=== PATIENT | female | born 2000 | race Caucasian/White ===

== ENCOUNTER 2022-04-28 20:25 | Emergency (ER) | payer OTHER, SELFPAY ==
--- NOTE | ~2022-04-28 | XR_ITS ---
EXAMINATION: XR chest 2V DATE: 04/28/2022 22:21 INDICATION: Shortness of breath and wheezing TECHNIQUE: Frontal and lateral views of the chest are obtained COMPARISON: None available FINDINGS: The lungs are free of acute opacities. No pleural effusion or pneumothorax. The cardiomedia stinal silhouette is normal. The visualized bones and soft tissues are unremarkable. IMPRESSION: 1. No acute cardiopulmonary abnormality. Reviewed, dictated and finalized at location F. MANAGEMENT NURSE PRACTITIONER
[2022-04-28 20:31] VITALS: BP 116/83; PULSE 97; RESP 15; TEMP 38.7; O2SAT 94
[2022-04-28 21:21] LABS: Influenza A QL RT-PCR Positive (Negative); Influenza B QL RT-PCR Negative (Negative); SARS-CoV-2 RNA PCR Negative
[2022-04-28] MEDS: ALBUTEROL SULFATE NEB 2.5 MG/3 ML INH 5 MG INHALATION (23:10)
[2022-04-28] MEDS: IPRATROPIUM BR 0.02% INH SOLN 0.5 MG/2.5 ML VIAL INHALATION (23:10)
[2022-04-28 23:11] VITALS: PULSE 91; RESP 20
[2022-04-28 23:22] VITALS: PULSE 89; RESP 20
--- NOTE | 2022-04-28 23:27 | ED.ASTHMA ---
HPI - Asthma General Chief Complaint: Asthma Stated Complaint: asthma with SOB Time Seen by Provider: 04/28/22 21:54 History of Present Illness HPI Narrative: 22-year-old female presents to the emergency room for evaluation of shortness of breath, difficulty breathing, wheezing, increased use of her albuterol nebulizer, body aches and headache. Patient states that she was seen in [facility] on Wednesday and diagnosed with a URI. Patient was given a couple days of prednisone and told to follow-up with her primary care physician. Patient states that she has been using her albuterol nebulizer machine 3 times day and has also been using her rescue inhaler 4-5 times a day. Related Data Allergies Allergy/AdvReac Type Severity Reaction Status Date / Time No Known Allergies Allergy Verified 04/28/22 20:26 Review of Systems Review of Systems: CONSTITUTIONAL: Denies fever, chills, or sweats. EYES: Denies visual changes, redness, or discharge. ENT: Denies rhinorrhea, congestion, sore throat, or otalgia. CARDIOVASCULAR: Denies chest pain, palpitations, or edema. RESPIRATORY: Reports dyspnea GASTROINTESTINAL: Denies abdominal pain, nausea, vomiting, or diarrhea. GENITOURINARY: Denies dysuria or hematuria. SKIN: Denies rash or itching. MUSCULOSKELETAL: Denies back pain, joint pain, or myalgia. NEUROLOGIC: Denies headache, numbness, dizziness, or weakness. PSYCHIATRIC: Denies anxiety or depression. [facility] Social History Social History Gender identity (if verbalized by the patient): Female Exam Narrative: GENERAL: Well-appearing, well-nourished, no physical limitations, and in no acute distress. HEAD: Normocephalic, atraumatic. EYES: Conjunctivae normal, PERRLA and EOMI. ENT: External nose normal, Nares clear, no rhinorrhea or epistaxis. Mucous membranes moist. Oropharynx without tonsillar hypertrophy exudate or other lesions. External ears normal, bilateral TMs normal bilaterally CHEST: No respiratory distress. Expiratory wheezes throughout HEART: Regular rate and rhythm. No murmur heard. Normal peripheral pulses. EXTREMITIES: Normal range of motion. No edema. No clubbing or cyanosis SKIN: Warm, dry, no rash. No noted wounds NEURO: No focal deficits. Alert and oriented x3. MAEW. CN's II-XI intact bilaterally, normal gait PSYCH: Cooperative. Normal mood and affect. Course Vital Signs Vital signs: Vital Signs Temperature 38.7 C H 04/28/22 20:31 Pulse Rate 97 04/28/22 20:31 Respiratory Rate 15 04/28/22 20:31 Blood Pressure 116/83 04/28/22 20:31 Pulse Oximetry 94 04/28/22 20:31 Oxygen Delivery Room Air 04/28/22 20:31 Temperature 38.7 C H 04/28/22 20:31 Pulse Rate 89 04/28/22 23:22 Respiratory Rate 20 04/28/22 23:22 Blood Pressure 116/83 04/28/22 20:31 Pulse Oximetry 94 04/28/22 20:31 Oxygen Delivery Room Air 04/28/22 20:31 MDM - Asthma Lab Data Labs: Lab Results 04/28/22 Range/Units 20:35 Influenza A (RT-PCR) Positive (Negative) Influenza B (RT-PCR) Negative (Negative) SARS-CoV-2 RNA (RT-PCR) Negative Imaging Data Radiologist's impression: Impressions Chest X-Ray 04/28/22 22:28 IMPRESSION: 1. No acute cardiopulmonary abnormality. Discharge Plan Discharge Clinical Impression: Asthma with acute exacerbation, Influenza A Patient Disposition: Home, Self-Care Condition: Stable Prescriptions: New prednisone 20 mg tablet 60 mg PO DAILY Qty: 6 0RF Xofluza 80 mg tablet 80 mg PO ONCE Qty: 1 0RF Rx Instructions: as a single dose fluticasone propion-salmeterol [Wixela Inhub] 100-50 mcg/dose blister with device 1 inh inhalation Q12H Qty: 60 0RF Follow-up/Referrals: UNKNOWN,DOCTOR [Primary Care Provider] - Time of Disposition: 23:30
[2022-04-28 23:45] VITALS: PULSE 100; RESP 17; O2SAT 95
== END 2022-04-28 23:45 | disposition home or self-care (01) ==
PROVIDERS: Emergency Provider Nurse Practitioner Family
DX: J10.1 Influenza due to other identified influenza virus with other respiratory manifestations (principal); J45.901 Unspecified asthma with (acute) exacerbation; Z20.822 Contact with and (suspected) exposure to COVID-19
CPT/HCPCS: 71046; 87636; 94640; 99283